=== PATIENT | female | born 1970 | race Caucasian/White ===

== ENCOUNTER → 2019-10-12 | Outpatient (CLI) | payer BC ==
[~2019-10-12] MED LIST: CIPR-225 PO; HYDR-4226 PO; METR500T PO; ONDA4TAB11 PO
[2019-10-12 15:07] LABS: HEMOGLOBIN 14.3 G/DL (11.5-16.0); MEAN CORPUSCULAR HEMOGLOBIN 29 PG (25-34); WHITE BLOOD COUNT 6.3 10^3/uL (4.3-11.0)
[2019-10-12 15:08] LABS: BASOPHILS % (AUTO) 2 % (0-10); EOSINOPHILS % (AUTO) 4 % (0-10); HEMATOCRIT 44 % (35-52); LYMPHOCYTES % (AUTO) 37 % (12-44); MEAN CORPUSCULAR HGB CONC 32 G/DL (32-36); MEAN CORPUSCULAR VOLUME 89 FL (80-99); MEAN PLATELET VOLUME 9.2 FL (7.4-10.4); MONOCYTES % (AUTO) 7 % (0-12); NEUTROPHILS % (AUTO) 50 % (42-75); PLATELET COUNT 351 10^3/uL (130-400); RED CELL DISTRIBUTION WIDTH 12.8 % (10.0-14.5)
[2019-10-12 15:09] LABS: BASOPHILS # (AUTO) 0.1 10^3/uL (0.0-0.1); EOSINOPHILS # (AUTO) 0.2 10^3/uL (0.0-0.3); LYMPHOCYTES # (AUTO) 2.4 X 10^3 (1.0-4.0); MONOCYTES # (AUTO) 0.5 X 10^3 (0.0-1.0); NEUTROPHILS # (AUTO) 3.1 X 10^3 (1.8-7.8)
[2019-10-12 15:23] LABS: BUN/CREATININE RATIO 9; CARBON DIOXIDE 28 MMOL/L (21-32); CHLORIDE 100 MMOL/L (98-107); CREATININE SERUM 0.96 MG/DL (0.60-1.30); GFR ESTIMATED > 60; POTASSIUM 4.5 MMOL/L (3.6-5.0); SODIUM 136 MMOL/L (135-145)
[2019-10-12 15:24] LABS: ALANINE AMINOTRANSFERASE 23 U/L (0-55); ALBUMIN 4.4 GM/DL (3.2-4.5); ALKALINE PHOSPHATASE 133 U/L (40-136); BILIRUBIN,TOTAL 0.9 MG/DL (0.1-1.0); CALCIUM 9.6 MG/DL (8.5-10.1); GLUCOSE 113 MG/DL (70-105); TOTAL PROTEIN 7.8 GM/DL (6.4-8.2)
== END ==
LOC: LAB FS 14:06
PROVIDERS: ATTEND Nurse Practitioner Family
DX: R10.9 Unspecified abdominal pain (principal)
CPT/HCPCS: 36415; 80053; 85025

== ENCOUNTER 2019-10-13 06:14 | Emergency (ER) | payer BC ==
[~2019-10-13] VITALS: Ht 157.5 cm; Wt 83.5 kg
--- NOTE | 2019-10-13 06:43 | ED Abdominal Pain ---
General Chief Complaint: Abdominal/GI Problems Stated Complaint: RIGHT SIDE PAIN Nursing Triage Note: PT AMBULATE TO ROOM FS06 WITH C/O RIGHT SIDED ABD PAIN THAT RADIATES AROUND THE RIGHT SIDE TO THE RIGHT BACK STARTING 2 DAYS AGO. PT STATES SHE HAS TAKEN TYLENOL AT HOME WITH NO RELIEF. Sepsis Screen: No Definite Risk Source of Information: Patient Exam Limitations: No Limitations History of Present Illness Date Seen by Provider: Oct 13, 2019 Time Seen by Provider: 06:30 Initial Comments The patient is a pleasant 49-year-old female who presents for evaluation of right lower back pain which is now radiating to the right lower quadrant and began 2 days ago. She states that she saw her PCP yesterday and had laboratory studies done and was told that it was likely her gallbladder and that if the pain continued to come to the emergency department for an ultrasound. The patient did not have any imaging performed yesterday. She reports a history of a hysterectomy but denies any other past surgical history. She does report some nausea. She denies urinary complaints/hematuria, fevers or chills, chest pain or shortness of breath, rectal bleeding, pelvic pain/bleeding/discharge, dizziness or syncope. She is alert and oriented 4, calm, and appears to be in no distress this time. The pain initially was just in the right lower back but is now also in the RLQ. She denies similar pain previously. Timing/Duration: 1-2 Days Severity/Quality: Moderate Location: RLQ, Flank (right) Radiation: RLQ Activities at Onset: None Associated Symptoms: Nausea/Vomiting Allergies and Home Medications Allergies Coded Allergies: No Known Allergies (Verified Allergy, Unknown, 10/13/19) Patient Home Medication List Home Medication List Reviewed: Yes Review of Systems Review of Systems Constitutional: no symptoms reported EENTM: No Symptoms Reported Respiratory: No Symptoms Reported Cardiovascular: No Symptoms Reported Gastrointestinal: Abdominal Pain, Nausea Genitourinary: No Symptoms Reported Musculoskeletal: back pain (right lower flank/back pain) Skin: no symptoms reported Psychiatric/Neurological: No Symptoms Reported Endocrine: No Symptoms Reported Hematologic/Lymphatic: No Symptoms Reported All Other Systems Reviewed Negative Unless Noted: Yes Past Klxzuki-Rxbrhw-Nxucuh Hx Past Med/Social Hx: Reviewed Nursing Past Med/Soc Hx Patient Social History Alcohol Use: Denies Use Recreational Drug Use: No Smoking Status: Never a Smoker 2nd Hand Smoke Exposure: No Recent Foreign Travel: No Contact w/Someone Who Travel: No Recent Infectious Disease Expo: No Recent Hopitalizations: No Physical Abuse: No Sexual Abuse: No Mistreated: No Fear: No Seasonal Allergies Seasonal Allergies: No Past Medical History Surgeries: Yes Section, Hysterectomy Respiratory: No Cardiac: No Neurological: No Genitourinary: No Gastrointestinal: No Musculoskeletal: No Endocrine: Yes Hypothyroidsim HEENT: No Cancer: No Psychosocial: No Integumentary: No Blood Disorders: No Physical Exam Vital Signs Vital Signs - First Documented 10/13/19 06:25 Temp 36.4 Pulse 84 Resp 18 B/P (MAP) 136/68 (90) O2 Delivery Room Air Capillary Refill : Less Than 3 Seconds Height/Weight/BMI Height: '" Weight: lbs. oz. kg; 33.00 BMI Method: General Appearance: WD/WN, no apparent distress HEENT: PERRL/EOMI, pharynx normal Neck: non-tender, full range of motion, supple Respiratory: chest non-tender, lungs clear, normal breath sounds, no respiratory distress Cardiovascular: regular rate, rhythm, no edema, no JVD Gastrointestinal: normal bowel sounds, soft, tenderness (RLQ - moderate, no RUQ or other ttp noted, soft, no rigidity, no distension) Extremities: normal range of motion, non-tender, no pedal edema Back: normal inspection, no CVA tenderness, no vertebral tenderness, other (no back ttp noted) Neurologic/Psychiatric: cushion gum applicator II-XII nml as tested, no motor/sensory deficits, alert, normal mood/affect, oriented x 3 Skin: normal color, warm/dry Progress/Results/Core Measures Results/Orders Lab Results Laboratory Tests Test 10/13/19 06:23 10/13/19 06:30 Range/Units Urine Color YELLOW Urine Clarity SLT CLOUDY Urine pH 5.5 5-9 Urine Specific [place] >=1.030 1.016-1.022 Urine Protein NEGATIVE NEGATIVE Urine Glucose (UA) NEGATIVE NEGATIVE Urine Ketones NEGATIVE NEGATIVE Urine Nitrite NEGATIVE NEGATIVE Urine Bilirubin NEGATIVE NEGATIVE Urine Urobilinogen 0.2 < = 1.0 MG/DL Urine Leukocyte Esterase NEGATIVE NEGATIVE Urine RBC (Auto) NEGATIVE NEGATIVE Urine RBC NONE /HPF Urine WBC NONE /HPF Urine Squamous Epithelial Cells 10-25 H /HPF Urine Crystals NONE /LPF Urine Bacteria FEW H /HPF Urine Casts NONE /LPF Urine Mucus SMALL H /LPF Urine Culture Indicated NO White Blood Count 6.6 4.3-11.0 10^3/uL Red Blood Count 4.86 4.35-5.85 10^6/uL Hemoglobin 14.0 11.5-16.0 G/DL Hematocrit 43 35-52 % Mean Corpuscular Volume 89 80-99 FL Mean Corpuscular Hemoglobin 29 25-34 PG Mean Corpuscular Hemoglobin Concent 32 32-36 G/DL Red Cell Distribution Width 12.9 10.0-14.5 % Platelet Count 321 130-400 10^3/uL Mean Platelet Volume 9.7 7.4-10.4 FL Neutrophils (%) (Auto) 47 42-75 % Lymphocytes (%) (Auto) 39 12-44 % Monocytes (%) (Auto) 7 0-12 % Eosinophils (%) (Auto) 5 0-10 % Basophils (%) (Auto) 1 0-10 % Neutrophils # (Auto) 3.1 1.8-7.8 X 10^3 Lymphocytes # (Auto) 2.5 1.0-4.0 X 10^3 Monocytes # (Auto) 0.5 0.0-1.0 X 10^3 Eosinophils # (Auto) 0.4 H 0.0-0.3 10^3/uL Basophils # (Auto) 0.1 0.0-0.1 10^3/uL Sodium Level 140 135-145 MMOL/L Potassium Level 3.8 3.6-5.0 MMOL/L Chloride Level 103 98-107 MMOL/L Carbon Dioxide Level 25 21-32 MMOL/L Anion Gap 12 5-14 MMOL/L Blood Urea Nitrogen 9 7-18 MG/DL Creatinine 0.83 0.60-1.30 MG/DL Estimat Glomerular Filtration Rate > 60 BUN/Creatinine Ratio 11 Glucose Level 108 H 70-105 MG/DL Calcium Level 9.3 8.5-10.1 MG/DL Corrected Calcium 9.1 8.5-10.1 MG/DL Total Bilirubin 1.1 H 0.1-1.0 MG/DL Aspartate Amino Transf (AST/SGOT) 17 5-34 U/L Alanine Aminotransferase (ALT/SGPT) 23 0-55 U/L Alkaline Phosphatase 130 40-136 U/L Total Protein 7.4 6.4-8.2 GM/DL Albumin 4.3 3.2-4.5 GM/DL Amylase Level 45 25-125 U/L Lipase 32 8-78 U/L My Orders Orders - DIONICIO CHURCHILL DO Ua Culture If Indicated (10/13/19 06:21) Amylase (10/13/19 06:27) Cbc With Automated Diff (10/13/19 06:27) Comprehensive Metabolic Panel (10/13/19 06:27) Lipase (10/13/19 06:27) Ct Abdomen/Pelvis W Wo (10/13/19 06:27) Ed Iv/Invasive Line Start (10/13/19 06:38) Iohexol Injection (Omnipaque 350 Mg/Ml 1 (10/13/19 06:45) Received Contrast (Hold Metformin- Contr (10/13/19 06:45) Sodium Chloride Flush (Catheter Flush Sy (10/13/19 06:45) Ns (Ivpb) (Sodium Chloride 0.9% Ivpb Bag (10/13/19 06:45) Medications Given in ED Current Medications Medications Dose Ordered Sig/Belkis Route Start Time Stop Time Status Last Admin Dose Admin Iohexol 100 ml ONCE ONCE IV 10/13/19 06:45 10/13/19 06:54 DC 10/13/19 07:16 100 ML Sodium Chloride 10 ml NEEDED PRN IV 10/13/19 06:45 10/13/19 07:16 10 ML Sodium Chloride 100 ml ONCE ONCE IV 10/13/19 06:45 10/13/19 06:54 DC 10/13/19 07:16 100 ML Vital Signs/I&O 10/13/19 06:25 Temp 36.4 Pulse 84 Resp 18 B/P (MAP) 136/68 (90) O2 Delivery Room Air Blood Pressure Mean: 90 POS Progress Progress Note : Progress Note @0828 - patient updated on lab and imaging results which suggests colitis. She will go home with antibiotics. Advised patient to follow up with her PCP in the next 1-2 days and to return to the Emergency Department immediately for new or worsening symptoms. Diagnostic Imaging Diagonstic Imaging: CT Comments [facility] POS [place], [place] POS NAME: TYSHAWNANDREW L [facility] REC#: [id number] PT STATUS: REG ER : 1970 PHYSICIAN: DIONICIO CHURCHILL DO ADMIT DATE: 10/13/19/ER FS Draft POSDate of Exam:10/13/19 CT ABDOMEN/PELVIS W WO PROCEDURE: CT abdomen and pelvis with and without contrast. TECHNIQUE: Precontrast acquisitions were acquired through the abdomen and pelvis. Multiple contiguous axial images were obtained through the abdomen and pelvis after the administration of intravenous contrast. Auto Exposure Controls were utilized during the CT exam to meet ALARA standards for radiation dose reduction. INDICATION: Right-sided abdominal pain and lower back pain for two days. Previous hysterectomy. COMPARISON STUDIES: None. FINDINGS: The lung bases are clear. There is fatty metamorphosis of the liver with no acute findings. Spleen, pancreas, adrenal glands, and kidneys are normal. There is some diffuse wall thickening of the urinary bladder, suggestive of cystitis. Uterus is absent. There is mild wall thickening of the ascending colon, consistent with mild colitis. No inflammatory changes are seen around this. There is no ascites, free air, or abnormal adenopathy. Vascular structures appear normal. The osseous structures are normal. IMPRESSION: 1. There is some wall thickening of the urinary bladder, consistent with cystitis. 2. Mild wall thickening without inflammation is seen around the ascending portion of the colon, consistent with mild colitis. Dictated on workstation # [id number] Dict: 10/13/19 0742 Trans: 10/13/19 0758 [id number] Interpreted by: JULISA GUILLEN MD Electronically signed by: Departure Impression Primary Impression: Colitis Disposition: 01 HOME, SELF-CARE Condition: Stable Departure-Patient Inst. Decision time for Depature: 08:49 Referrals: SELFNAYELY MD (PCP/Family) Primary Care Physician Patient Instructions: Colitis (DC) Add. Discharge Instructions: Take the prescribed medication as directed. Return to the emergency Department immediately for new or worsening symptoms. Follow-up with your doctor in the next 1-2 days. Scripts Ondansetron (Ondansetron Odt) 4 Mg Tab.rapdis 4 MG PO Q6H PRN for NAUSEA/VOMITING-1ST LINE for 5 Days, #20 TAB Prov: DIONICIO CHURCHILL DO 10/13/19 Hydrocodone/Acetaminophen ([place] 5-325 Tablet) 1 Each Tablet 1 TAB PO Q4-6HR for Pain MDD 10 TABS for 5 Days, #15 TAB Prov: DIONICIO CHURCHILL DO 10/13/19 Ciprofloxacin HCl (Cipro) 500 Mg Tablet 500 MG PO BID for 7 Days, #14 TAB Prov: DIONICIO CHURCHILL DO 10/13/19 Metronidazole (Flagyl) 500 Mg Tablet 500 MG PO TID for 7 Days, #21 TAB Prov: DIONICIO CHURCHILL DO 10/13/19 DIONICIO CHURCHILL DO Oct 13, 2019 06:43 POS
[2019-10-13] MEDS ORDERED: CATHETER FLUSH 10 ML SYR IV PRN (06:45)
[2019-10-13] MEDS ORDERED: HOLD METFORMIN - RECEIVED CONTRAST 20 ML VIAL IV SCH (06:45)
[2019-10-13] MEDS ORDERED: IOHEXOL 350 MG/ML 100 ML (OMNIPAQUE 350) VIAL IV ONE (06:45)
[2019-10-13] MEDS ORDERED: NS 100 ML (IVPB) BAG IV ONE (06:45)
[2019-10-13 07:06] LABS: WHITE BLOOD COUNT 6.6 10^3/uL (4.3-11.0)
[2019-10-13 07:07] LABS: EOSINOPHILS % (AUTO) 5 % (0-10); HEMATOCRIT 43 % (35-52); LYMPHOCYTES % (AUTO) 39 % (12-44); MEAN CORPUSCULAR HEMOGLOBIN 29 PG (25-34); MEAN CORPUSCULAR HGB CONC 32 G/DL (32-36); MEAN CORPUSCULAR VOLUME 89 FL (80-99); MEAN PLATELET VOLUME 9.7 FL (7.4-10.4); MONOCYTES % (AUTO) 7 % (0-12); NEUTROPHILS % (AUTO) 47 % (42-75); PLATELET COUNT 321 10^3/uL (130-400); RED CELL DISTRIBUTION WIDTH 12.9 % (10.0-14.5)
[2019-10-13 07:08] LABS: BASOPHILS # (AUTO) 0.1 10^3/uL (0.0-0.1); BASOPHILS % (AUTO) 1 % (0-10); EOSINOPHILS # (AUTO) 0.4 10^3/uL (0.0-0.3); LYMPHOCYTES # (AUTO) 2.5 X 10^3 (1.0-4.0); MONOCYTES # (AUTO) 0.5 X 10^3 (0.0-1.0); NEUTROPHILS # (AUTO) 3.1 X 10^3 (1.8-7.8)
[2019-10-13 07:18] LABS: BILIRUBIN,URINE NEGATIVE (NEGATIVE); CLARITY,URINE SLT CLOUDY; COLOR,URINE YELLOW; GLUCOSE, URINE (UA) NEGATIVE (NEGATIVE); KETONES,URINE NEGATIVE (NEGATIVE); LEUKOCYTE ESTERASE ,URINE NEGATIVE (NEGATIVE); NITRITE,URINE NEGATIVE (NEGATIVE); PH,URINE 5.5 (5-9); PROTEIN,URINE NEGATIVE (NEGATIVE)
[2019-10-13 07:19] LABS: BACTERIA,URINE FEW /HPF
[2019-10-13 07:24] LABS: ALANINE AMINOTRANSFERASE 23 U/L (0-55); ALKALINE PHOSPHATASE 130 U/L (40-136); BILIRUBIN,TOTAL 1.1 MG/DL (0.1-1.0); BUN/CREATININE RATIO 11; CALCIUM 9.3 MG/DL (8.5-10.1); CARBON DIOXIDE 25 MMOL/L (21-32); CHLORIDE 103 MMOL/L (98-107); CREATININE SERUM 0.83 MG/DL (0.60-1.30); GFR ESTIMATED > 60; GLUCOSE 108 MG/DL (70-105); POTASSIUM 3.8 MMOL/L (3.6-5.0); SODIUM 140 MMOL/L (135-145)
[2019-10-13 07:25] LABS: ALBUMIN 4.3 GM/DL (3.2-4.5); AMYLASE 45 U/L (25-125); LIPASE 32 U/L (8-78); TOTAL PROTEIN 7.4 GM/DL (6.4-8.2)
--- NOTE | 2019-10-13 07:58 | Diagnostic Imaging Report ---
PROCEDURE: CT abdomen and pelvis with and without contrast. TECHNIQUE: Precontrast acquisitions were acquired through the abdomen and pelvis. Multiple contiguous axial images were obtained through the abdomen and pelvis after the administration of intravenous contrast. Auto Exposure Controls were utilized during the CT exam to meet ALARA standards for radiation dose reduction. INDICATION: Right-sided abdominal pain and lower back pain for two days. Previous hysterectomy. COMPARISON STUDIES: None. FINDINGS: The lung bases are clear. There is fatty metamorphosis of the liver with no acute findings. Spleen, pancreas, adrenal glands, and kidneys are normal. There is some diffuse wall thickening of the urinary bladder, suggestive of cystitis. Uterus is absent. There is mild wall thickening of the ascending colon, consistent with mild colitis. No inflammatory changes are seen around this. There is no ascites, free air, or abnormal adenopathy. Vascular structures appear normal. The osseous structures are normal. IMPRESSION: 1. There is some wall thickening of the urinary bladder, consistent with cystitis. 2. Mild wall thickening without inflammation is seen around the ascending portion of the colon, consistent with mild colitis. Dictated by: Dictated on workstation # [id number]
[2019-10-13] MEDS ORDERED: METR500T PO (08:56)
[2019-10-13] MEDS ORDERED: CIPR-225 PO (08:56)
[2019-10-13] MEDS ORDERED: HYDR-4226 PO (09:00)
[2019-10-13] MEDS ORDERED: ONDA4TAB11 PO (09:00)
[2019-10-13 09:21] VITALS: BP 123/70
== END 2019-10-13 09:21 | disposition home or self-care (01) ==
LOC: EDUNIT# 06:14 → ER FS 06:16
DX: K52.9 Noninfective gastroenteritis and colitis, unspecified (principal); E03.9 Hypothyroidism, unspecified; Z90.710 Acquired absence of both cervix and uterus
CPT/HCPCS: 36415; 74178; 80053; 81000; 82150; 83690; 85025

== ENCOUNTER 2021-04-01 06:44 | Emergency (ER) | payer BC ==
[~2021-04-01] VITALS: Ht 157.4 cm; Wt 87.0 kg
--- NOTE | 2021-04-01 07:04 | ED Abdominal Pain ---
General Stated Complaint: LOWER ABDOMINAL PAIN Source of Information: Patient History of Present Illness Date Seen by Provider: April 01, 2021 Time Seen by Provider: 06:58 Initial Comments 51-year-old female presents with lower abdominal cramping and pain, diarrhea. Patient reports she been having symptoms for about a week. She feels like every time she eats it just goes right through her. Patient was seen and had a work- up started by her primary care provider. Reports she had labs that showed "elevated liver enzymes" the she had a stool sample taken but does not know the results. Patient reports no changes in her symptoms but that she is just tired of it. She has no reports of nausea or vomiting, fever, chills. The majority of her pain is in the right lower quadrant. Allergies and Home Medications Allergies Coded Allergies: No Known Allergies (Verified Allergy, Unknown, 10/13/19) sulfamethoxazole (Unverified Adverse Reaction, Unknown, 04/01/21) trimethoprim (Unverified Adverse Reaction, Unknown, 04/01/21) Patient Home Medication List Home Medication List Reviewed: Yes Review of Systems Review of Systems Constitutional: No chills, No fever Respiratory: No Symptoms Reported Cardiovascular: No Symptoms Reported Gastrointestinal: Abdominal Pain, Diarrhea; Denies Nausea, Denies Vomiting Genitourinary: No Symptoms Reported Musculoskeletal: no symptoms reported Skin: no symptoms reported Psychiatric/Neurological: No Symptoms Reported Endocrine: No Symptoms Reported Hematologic/Lymphatic: No Symptoms Reported Past Ghcndjy-Mqehtf-Ybegao Hx Past Med/Social Hx: Reviewed Nursing Past Med/Soc Hx Patient Social History 2nd Hand Smoke Exposure: No Recent Hopitalizations: No Seasonal Allergies Seasonal Allergies: No Past Medical History Surgeries: Yes Section, Hysterectomy Respiratory: No Cardiac: No Neurological: No Genitourinary: No Gastrointestinal: No Musculoskeletal: No Endocrine: Yes Hypothyroidsim HEENT: No Cancer: No Psychosocial: No Integumentary: No Blood Disorders: No Physical Exam Vital Signs Vital Signs - First Documented 04/01/21 06:52 Temp 36.3 Pulse 72 Resp 16 B/P (MAP) 128/72 (90) Pulse Ox 98 O2 Delivery Room Air Capillary Refill : Height/Weight/BMI Height: '" Weight: lbs. oz. kg; 33.00 BMI Method: General Appearance: no apparent distress Respiratory: lungs clear, normal breath sounds Cardiovascular: normal peripheral pulses, regular rate, rhythm Gastrointestinal: soft; No guarding, No rebound; tenderness (Mild right lower quadrant) Extremities: non-tender Back: normal inspection, no CVA tenderness Neurologic/Psychiatric: alert, normal mood/affect, oriented x 3 Lymphatic: no adenopathy Progress/Results/Core Measures Results/Orders Lab Results Laboratory Tests Test 04/01/21 06:55 04/01/21 07:15 Range/Units Urine Color YELLOW Urine Clarity CLEAR Urine pH 6.0 5-9 Urine Specific Jbphh 1.025 H 1.016-1.022 Urine Protein NEGATIVE NEGATIVE Urine Glucose (UA) NEGATIVE NEGATIVE Urine Ketones NEGATIVE NEGATIVE Urine Nitrite NEGATIVE NEGATIVE Urine Bilirubin NEGATIVE NEGATIVE Urine Urobilinogen 0.2 < = 1.0 MG/DL Urine Leukocyte Esterase NEGATIVE NEGATIVE Urine RBC (Auto) NEGATIVE NEGATIVE Urine RBC RARE /HPF Urine WBC 0-2 /HPF Urine Squamous Epithelial Cells 10-25 H /HPF Urine Crystals NONE /LPF Urine Bacteria MODERATE H /HPF Urine Casts NONE /LPF Urine Mucus MODERATE H /LPF Urine Culture Indicated NO White Blood Count 7.0 4.3-11.0 10^3/uL Red Blood Count 4.83 4.35-5.85 10^6/uL Hemoglobin 14.1 11.5-16.0 G/DL Hematocrit 41 35-52 % Mean Corpuscular Volume 86 80-99 FL Mean Corpuscular Hemoglobin 29 25-34 PG Mean Corpuscular Hemoglobin Concent 34 32-36 G/DL Red Cell Distribution Width 12.7 10.0-14.5 % Platelet Count 286 130-400 10^3/uL Mean Platelet Volume 9.6 7.4-10.4 FL Immature Granulocyte % (Auto) 0 % Neutrophils (%) (Auto) 41 L 42-75 % Lymphocytes (%) (Auto) 45 H 12-44 % Monocytes (%) (Auto) 7 0-12 % Eosinophils (%) (Auto) 6 0-10 % Basophils (%) (Auto) 1 0-10 % Neutrophils # (Auto) 2.8 1.8-7.8 X 10^3 Lymphocytes # (Auto) 3.1 1.0-4.0 X 10^3 Monocytes # (Auto) 0.5 0.0-1.0 X 10^3 Eosinophils # (Auto) 0.4 H 0.0-0.3 10^3/uL Basophils # (Auto) 0.1 0.0-0.1 10^3/uL Immature Granulocyte # (Auto) 0.0 0.0-0.1 10^3/uL Sodium Level 140 135-145 MMOL/L Potassium Level 3.6 3.6-5.0 MMOL/L Chloride Level 105 98-107 MMOL/L Carbon Dioxide Level 26 21-32 MMOL/L Anion Gap 9 5-14 MMOL/L Blood Urea Nitrogen 7 7-18 MG/DL Creatinine 0.98 0.60-1.30 MG/DL Estimat Glomerular Filtration Rate 60 BUN/Creatinine Ratio 7 Glucose Level 109 H 70-105 MG/DL Calcium Level 9.2 8.5-10.1 MG/DL Corrected Calcium 9.1 8.5-10.1 MG/DL Total Bilirubin 1.7 H 0.1-1.0 MG/DL Aspartate Amino Transf (AST/SGOT) 34 5-34 U/L Alanine Aminotransferase (ALT/SGPT) 49 0-55 U/L Alkaline Phosphatase 213 H 40-136 U/L C-Reactive Protein 0.55 H <0.50 MG/DL Total Protein 7.2 6.4-8.2 GM/DL Albumin 4.1 3.2-4.5 GM/DL My Orders Orders - MALONEY,BOBBY L DO Cbc With Automated Diff (04/01/21 07:04) Comprehensive Metabolic Panel (04/01/21 07:04) Ua Culture If Indicated (04/01/21 07:04) Crp Fs (04/01/21 07:04) Ondansetron Injection (Zofran Injectio (04/01/21 07:30) Lactated Ringers (Lr 1000 Ml Iv Solution (04/01/21 07:17) Ct Abd/Pelv W (Appendicitis) (04/01/21 07:04) Iohexol Injection (Omnipaque 350 Mg/Ml 1 (04/01/21 07:45) Received Contrast (Hold Metformin- Contr (04/01/21 07:45) Sodium Chloride Flush (Catheter Flush Sy (04/01/21 07:45) Ns (Ivpb) (Sodium Chloride 0.9% Ivpb Bag (04/01/21 07:45) Medications Given in ED Current Medications Medications Dose Ordered Sig/Belkis Route Start Time Stop Time Status Last Admin Dose Admin Iohexol 100 ml ONCE ONCE IV 04/01/21 07:45 04/01/21 07:46 DC 04/01/21 08:01 100 ML Ondansetron HCl 4 mg ONCE ONCE IVP 04/01/21 07:30 04/01/21 07:31 DC 04/01/21 07:26 4 MG Sodium Chloride 10 ml NEEDED PRN IV 04/01/21 07:45 04/01/21 08:01 10 ML Sodium Chloride 100 ml ONCE ONCE IV 04/01/21 07:45 04/01/21 07:46 DC 04/01/21 08:01 80 ML Vital Signs/I&O 04/01/21 06:52 Temp 36.3 Pulse 72 Resp 16 B/P (MAP) 128/72 (90) Pulse Ox 98 O2 Delivery Room Air Progress Progress Note : Time: 09:06 Progress Note Patient with no significant abnormality on CT scan in her abdomen or right lower quadrant. Patient with mild elevated alk phos and mild elevated bilirubin. She should follow-up with her primary care provider. If symptoms continue or moves she may want to consider ultrasound of her gallbladder. Patient is otherwise stable and discharged Diagnostic Imaging Diagonstic Imaging: CT Plain Films/CT/US/NM/MRI: abdomen Comments MPRESSION: 1. There is no evidence for an acute abnormality of the right lower quadrant. In particular, there is no sign of appendicitis and there does not appear to be any recurrent colitis of the ascending colon. 2. The bladder is not well-distended and consequently difficult to assess. Clinical followup is recommended. 3. There is no acute abnormality of the abdomen or pelvis noted otherwise. Departure Impression Primary Impression: Right lower quadrant abdominal pain Additional Impression: Diarrhea Qualified Codes: R19.7 - Diarrhea, unspecified Disposition: HOME, SELF-CARE Condition: Stable Departure-Patient Inst. Referrals: NAYELY RAMOS MD (PCP/Family) Primary Care Physician Patient Instructions: Diarrhea, Adult ED, Severe Abdominal Pain, Adult (DC) Add. Discharge Instructions: Follow-up with Dr. Ramos for continued outpatient evaluation Drink plenty of fluids Tylenol or ibuprofen as needed for stomach pain/discomfort Work/School Note: Work Release Form Date Seen in the Emergency Department: April 01, 2021 Return to Work: April 02, 2021 Restrictions: No Restrictions BOBBY MALONEY DO April 01, 2021 07:04
[2021-04-01] MEDS ORDERED: LACTATED RINGERS 1,000 ML IV STA (07:17)
[2021-04-01] MEDS ORDERED: ONDANSETRON 4 MG/2 ML (SDV) Z0FRAN IVP ONE (07:30)
[2021-04-01] MEDS ORDERED: LEVO25TA80 (07:32)
[2021-04-01] MEDS ORDERED: PARO20TA5 (07:32)
[2021-04-01 07:37] LABS: BASOPHILS % (AUTO) 1 % (0-10); EOSINOPHILS # (AUTO) 0.4 10^3/uL (0.0-0.3); EOSINOPHILS % (AUTO) 6 % (0-10); HEMATOCRIT 41 % (35-52); HEMOGLOBIN 14.1 G/DL (11.5-16.0); LYMPHOCYTES # (AUTO) 3.1 X 10^3 (1.0-4.0); LYMPHOCYTES % (AUTO) 45 % (12-44); MEAN CORPUSCULAR HEMOGLOBIN 29 PG (25-34); MEAN CORPUSCULAR HGB CONC 34 G/DL (32-36); MEAN CORPUSCULAR VOLUME 86 FL (80-99); MEAN PLATELET VOLUME 9.6 FL (7.4-10.4); MONOCYTES # (AUTO) 0.5 X 10^3 (0.0-1.0); MONOCYTES % (AUTO) 7 % (0-12); NEUTROPHILS # (AUTO) 2.8 X 10^3 (1.8-7.8); NEUTROPHILS % (AUTO) 41 % (42-75); PLATELET COUNT 286 10^3/uL (130-400)
[2021-04-01 07:38] LABS: BASOPHILS # (AUTO) 0.1 10^3/uL (0.0-0.1)
[2021-04-01 07:42] LABS: CLARITY,URINE CLEAR; COLOR,URINE YELLOW
[2021-04-01 07:43] LABS: BACTERIA,URINE MODERATE /HPF; BILIRUBIN,URINE NEGATIVE (NEGATIVE); GLUCOSE, URINE (UA) NEGATIVE (NEGATIVE); KETONES,URINE NEGATIVE (NEGATIVE); LEUKOCYTE ESTERASE ,URINE NEGATIVE (NEGATIVE); NITRITE,URINE NEGATIVE (NEGATIVE); PROTEIN,URINE NEGATIVE (NEGATIVE); RBC,URINE RARE /HPF; WBC,URINE 0-2 /HPF
[2021-04-01] MEDS ORDERED: HOLD METFORMIN - RECEIVED CONTRAST 20 ML VIAL IV SCH (07:45)
[2021-04-01] MEDS ORDERED: IOHEXOL 350 MG/ML 100 ML (OMNIPAQUE 350) VIAL IV ONE (07:45)
[2021-04-01] MEDS ORDERED: CATHETER FLUSH 10 ML SYR IV PRN (07:45)
[2021-04-01] MEDS ORDERED: NS 100 ML (IVPB) BAG IV ONE (07:45)
[2021-04-01 07:53] LABS: ALBUMIN 4.1 GM/DL (3.2-4.5); BILIRUBIN,TOTAL 1.7 MG/DL (0.1-1.0); CALCIUM 9.2 MG/DL (8.5-10.1); CREATININE SERUM 0.98 MG/DL (0.60-1.30); POTASSIUM 3.6 MMOL/L (3.6-5.0); TOTAL PROTEIN 7.2 GM/DL (6.4-8.2)
--- NOTE | 2021-04-01 08:57 | Diagnostic Imaging Report ---
PROCEDURE: CT abdomen and pelvis with contrast, rule out appendicitis. TECHNIQUE: Multiple contiguous axial images were obtained through the abdomen and pelvis after the administration of intravenous contrast. All CT scans use one or more of the following dose optimizing techniques: automated exposure control, MA and/or KvP adjustment based on patient size and exam type or iterative reconstruction. INDICATION: Abdominal pain, appendicitis. FINDINGS: The previous CT abdomen/pelvis exam of 10/13/2019 suggested mild cystitis and colitis of the ascending colon. On this exam, there is no convincing evidence for thickening of the wall of the ascending colon to suggest acute recurrent colitis. There is no distortion of the pericolic fat in this area either. The appendix was visualized and is not abnormally thickened. The urinary bladder is only partially distended and consequently difficult to assess. The bladder wall does seem slightly thickened but this may be related to incomplete distention as opposed to cystitis. Clinical followup is recommended. As seen on the prior exam, the uterus is surgically absent. There is no pelvic mass or free fluid collection noted. There are a few diverticula in the sigmoid and descending colon but there is no sign of acute diverticulitis. The liver, spleen, pancreas, adrenals, gallbladder, kidneys, aorta, inferior vena cava, and portal vein are unremarkable for an acute abnormality. The stomach is partially filled with fluid and consequently difficult to assess. The lung bases are clear. The bone windows show no evidence for a fracture or for a destructive lesion. IMPRESSION: 1. There is no evidence for an acute abnormality of the right lower quadrant. In particular, there is no sign of appendicitis and there does not appear to be any recurrent colitis of the ascending colon. 2. The bladder is not well-distended and consequently difficult to assess. Clinical followup is recommended. 3. There is no acute abnormality of the abdomen or pelvis noted otherwise. Dictated by: Dictated on workstation # [id number]
[2021-04-01 09:15] VITALS: BP 113/61
== END 2021-04-01 09:15 | disposition home or self-care (01) ==
LOC: EDUNIT# 06:44 → ER FS 06:47
DX: R10.31 Right lower quadrant pain (principal); R19.7 Diarrhea, unspecified; Z88.2 Allergy status to sulfonamides; Z88.1 Allergy status to other antibiotic agents
CPT/HCPCS: 36415; 74177; 80053; 81000; 85025; 86141